=== PATIENT | male | born 1985 | race Caucasian/White ===

== ENCOUNTER 2019-07-27 10:26 | Emergency (ER) | payer OTHER ==
[2019-07-27] MEDS ORDERED: Ketorolac 60 MG/2 ML SDV IM ONE (10:49)
[2019-07-27] MEDS ORDERED: Lidocaine 2% Viscous Solution 15 ML Cup PO ONE (11:12)
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
== END 2019-07-27 11:32 | disposition home or self-care (01) ==
LOC: FB.ED 10:26
DX: T59.891A Toxic effect of other specified gases, fumes and vapors, accidental (unintentional), initial encounter (principal); T21.52XA Corrosion of first degree of abdominal wall, initial encounter; T21.55XA Corrosion of first degree of buttock, initial encounter; T32.0 Corrosions involving less than 10% of body surface; Y93.89 Activity, other specified; Y92.89 Other specified places as the place of occurrence of the external cause; Y99.0 Civilian activity done for income or pay
CPT/HCPCS: 16000; 96372; 99283-25; A9270-GY; J1885